=== PATIENT | female | born 1985 | race Caucasian/White ===

== ENCOUNTER 2025-04-26 08:23 | Emergency (ER) | payer MEDICAID ==
[~2025-04-26] VITALS: Ht 160 cm; Wt 72.0 kg
[~2025-04-26 08:23] MED LIST: LABE300T5 PO; METH250T28 PO; PREN-96 PO
[2025-04-26 08:30] VITALS: PULSE 100; RESP 24; TEMP 97.8; O2SAT 94
--- NOTE | 2025-04-26 08:46 | ED.PDOC ---
History of Present Illness HPI Comments 40-year-old female brought in by EMS presents s/p overdose. Patient states that she overdosed on Fentanyl. Patient was found in her hotel room by EMS and was administered 4mg of Narcan by EMS with positive response. Patient mentions that she feels fine at this time. Patient is hypertensive at 206/130 but reports that she does not take medications as prescribed for her HTN. Chief Complaint: Overdose Time Seen by MD: 08:35 Primary Care Provider: JESS Wilkins Notes: Medications, Allergies Allergies: Coded Allergies: NO KNOWN ALLERGIES (Unverified , 10/19/14) Home Meds Reported Medications Labetalol Hcl (Labetalol Hcl) 300 Mg Tab, 300 MG PO for 30 Days, MG 02/22/15 Methyldopa (Aldomet) 250 Mg Tb, 250 MG PO 02/22/15 Vit W/ Ferrous Fumara ( One Daily) Daily Tab, 1 TAB PO DAILY, #90 TAB 3 Refills 02/22/15 Information Source: Patient, Emergency Med Personnel Mode of Arrival: EMS Severity: Moderate Timing: Minutes Duration: Since onset Prehospital treatment: Alterations Tailor, Treatment (4mg NARCAN) Past Medical History PAST MEDICAL HISTORY: HTN Surgical History: Denies all surgeries [employer] History: No Pertinent [employer] History Social History Smoker: Non-Smoker Alcohol: Denies ETOH Use Drugs: Other (FENTANYL) Lives In: Home Constitutional: denies: chills, diaphoresis, fatigue, fever, malaise, sweats, weakness, others EENTM: denies: blurred vision, double vision, ear bleeding, ear discharge, ear drainage, ear pain, ear ringing, eye pain, eye redness, hearing loss, mouth pain, mouth swelling, nasal discharge, nose bleeding, nose congestion, nose pain, photophobia, tearing, throat pain, throat swelling, voice changes, others Respiratory: denies: cough, hemoptysis, orthopnea, SOB at rest, shortness of breath, SOB with excertion, stridor, wheezing, others Cardiovascular: denies: chest pain, dizzy spells, diaphoresis, Dyspnea on exertion, edema, irregular heart beat, left arm pain, lightheadedness, palpitations, PND, syncope, others Gastrointestinal: denies: abdomen distended, abdominal pain, blood streaked bowels, constipated, diarrhea, dysphagia, difficulty swallowing, hematemesis, melena, nausea, poor appetite, poor fluid intake, rectal bleeding, rectal pain, vomiting, others Genitourinary: denies: abnormal vagina bleeding, burning, dyspareunia, dysuria, flank pain, frequency, hematuria, incontinence, pain, , vagina discharge, urgency, others Neurological: denies: dizziness, fainting, headache, left sided numbness, left sided weakness, numbness, paresthesia, pre-existing deficit, right sided numbness, right sided weakness, seizure, speech problems, tingling, tremors, weakness, others Musculoskeletal: denies: back pain, gout, joint pain, joint swelling, muscle p ain, muscle stiffness, neck pain, others Integumetry: denies: bruises, change in color, change in hair/nails, dryness, laceration, lesions, lumps, rash, wounds, others Allergic/Immunocompromised: denies: Difficulty Healing, Frequent Infections, Hives, Itching, others Hematologic/Lymphatic: denies: anemia, blood clots, easy bleeding, easy bruising, swollen glands, others Endocrine: denies: excessive hunger, excessive sweating, excessive thirst, excessive urination, flushing, intolerance to cold, intolerance to heat, unexplained weight gain, unexplained weight loss, others Psychiatric: denies: anxiety, bipolar disorder, depression, hopeless, panic disorder, schizophrenia, sleepless, suicidal, others All Other Systems: Reviewed and Negative Physical Exam General Appearance: No Apparent Distress, Normal HEENT: Normal ENT Inspection, Pharynx Normal, TMs Normal Neck: Full Range of Motion, Non-Tender, Normal, Normal Inspection Respiratory: Chest Non-Tender, Lungs Clear, No Accessory Muscle Use, No Respiratory Distress, Normal Breath Sounds Cardiovascular: No Edema, No JVD, No Murmur, No Gallop, Normal Peripheral Pulses, Regular Rate/Rhythm Breast Exam: Deferred Gastrointestinal: No Organomegaly, Non Tender, No Pulsatile Mass, Normal Bowel Sounds, Soft Genitalia: Deferred Pelvic: Deferred Rectal: Deferred Extremities: No calf tenderness, Normal capillary refill, Normal inspection, Normal range of motion, Non-tender, No pedal edema Musculoskeletal : Apperance: Normal Neurologic: Alert, continuing education dean II-XII nml as Tested, No Motor Deficits, Normal Affect, Normal Mood, No Sensory Deficits Cerebellar Function: Normal Reflexes: Normal Skin: Dry, Normal Color, Warm Lymphatic: No Adenopathy Was a procedure done? Was a procedure done?: No Differential Dx Considerations may include: Opiate overdose X-Ray, Labs, Meds, VS Vital Signs Date Time Temp Pulse Resp B/P (MAP) Pulse Ox O2 Delivery O2 Flow Rate FiO2 04/26/25 09:00 97 20 160/117 (131) 96 04/26/25 08:44 93 04/26/25 08:30 100 24 Room Air 0 04/26/25 08:30 100 24 94 Room Air* 0 21 04/26/25 08:30 97.8 100 24 199/121 (147) 94 97.8 04/26/25 08:29 98.9 101 18 206/130 98 98.9 Time of 1ST Reevaluation: 09:05 Reevaluation 1ST: Unchanged Patient Education/Counseling: Diagnosis, Treatment Family Education/Counseling: No Family Present SEPSIS Sepsis Screen Physician Orders Electrocardigram (04/26/25 08:50) Vital Signs Date Time Temp Pulse Resp B/P (MAP) Pulse Ox O2 Delivery O2 Flow Rate FiO2 04/26/25 09:00 97 20 160/117 (131) 96 04/26/25 08:44 93 04/26/25 08:30 100 24 Room Air 0 04/26/25 08:30 100 24 94 Room Air* 0 21 04/26/25 08:30 97.8 100 24 199/121 (147) 94 97.8 04/26/25 08:29 98.9 101 18 206/130 98 98.9 Departure 1 Departure Time of Disposition: 18:38 (Patient returned to baseline. Patient has signed out AMA ) Impression: Primary Impression: Opiate overdose Qualified Codes: T40.601A - Poisoning by unspecified narcotics, accidental (unintentional), initial encounter Disposition: LEFT AGAINST MEDICAL ADVICE Condition: Fair Critical Care Note Critical Care Time?: No Stability Stability form required: No Heart Score Heart Score: Heart Score Response (Comments) Value History N/A 0 EKG N/A 0 Age N/A 0 Risk Factors N/A 0 Troponin N/A 0 Total 0 I personally scribed for PAUL PIMENTEL MD ([email or web address]) on 04/26/25 at 08:46. Electronically submitted by Marco Galvez ([email or web address]). PAUL PIMENTEL MD Apr 26, 2025 08:46
[2025-04-26 09:00] VITALS: BP 160/117; PULSE 97; RESP 20; O2SAT 96
[2025-04-26] MEDS ORDERED: SODIUM CHLORIDE 0.9% 1,000 ML IV ONE (09:30)
--- NOTE | 2025-04-27 06:30 | ECG ---
[facility] Test Date: 2025-04-26 Test Time: 08:44:01 Pat Name: DAVID TAMAYO Department: [facility] ED Patient ID: [facility]-[id number] Room: Gender: F Supervisor Carding: ronak : 1985 Requested By: PAUL PIMENTEL Order Number: [id number] Reading MD: Silvio Hopkins Measurements Intervals [place] Rate: 93 P: 44 TN: 151 QRS: 9 QRSD: 104 T: 183 QT: 351 QTc: 437 Interpretive Statements Sinus rhythm Probable left atrial enlargement LVH with secondary repolarization abnormality Electronically Signed On 04-27-2025 11:19:07 PDT by Silvio Hopkins Please click the below link to view image of tracing.
== END 2025-04-26 09:29 | disposition left against medical advice (07) ==
LOC: EDBD 08:23 → ER 08:23
DX: T40.601A Poisoning by unspecified narcotics, accidental (unintentional), initial encounter (principal); T40.411A Poisoning by fentanyl or fentanyl analogs, accidental (unintentional), initial encounter; I10 Essential (primary) hypertension; Z79.899 Other long term (current) drug therapy; Y92.89 Other specified places as the place of occurrence of the external cause
CPT/HCPCS: 93005